=== PATIENT | male | born 1995 | race Caucasian/White ===

== ENCOUNTER 2017-09-30 11:28 | Emergency (ER) | payer SELFPAY ==
[~2017-09-30] VITALS: Ht 170.2 cm; Wt 74.8 kg
[2017-09-30] MEDS ORDERED: HALOPERIDOL LACTATE INJ 5 MG/ML VIAL ONE (11:39)
[2017-09-30] MEDS ORDERED: diphenhydrAMINE HCL 50 MG/ML VIAL ONE (11:39)
[2017-09-30] MEDS ORDERED: LORAZEPAM INJ 2 MG/ML VIAL ONE (11:40)
--- NOTE | 2017-09-30 11:40 | NUR ---
BBRA88/[employer]: PSYCHOTIC, DELUSIONAL S/P USING "BATH SALT", BBRA88/[employer]: PSYCHOTIC, DELUSIONAL S/P USING "BATH SALT", NAD NOTED, VSS, RESP EVEN AND UNLABORED, PT PUT ON MONITOR. AT .
[2017-09-30 11:48] LABS: BASOPHILS # (AUTO) 0.1 /CMM (0.0-0.2); BASOPHILS % (AUTO) 1.1 % (0.0-2.0); EOSINOPHILS % (AUTO) 0.2 % (0.0-6.0); HEMATOCRIT 42 % (39-51); HEMOGLOBIN 13.5 g/dL (13.5-17.5); LYMPHOCYTES # (AUTO) 1.2 /CMM (0.8-4.8); LYMPHOCYTES % (AUTO) 16.1 % (20.0-44.0); MEAN CORPUSCULAR HEMOGLOBIN 23 PG (26.0-33.0); MEAN CORPUSCULAR HGB CONC 32 g/dl (31.0-36.0); MEAN CORPUSCULAR VOLUME 69 fL (80-96); MONOCYTES # (AUTO) 0.5 /CMM (0.1-1.30); MONOCYTES % (AUTO) 6.9 % (2.0-12.0); NEUTROPHILS # (AUTO) 5.4 /CMM (1.8-8.9); NEUTROPHILS % (AUTO) 75.7 % (43.0-81.0); PLATELET COUNT (AUTO) 378 /CMM (150-450); RDW COEFFICIENT OF VARIATION 13.6 (11.5-15.0); WHITE BLOOD COUNT (AUTO) 7.2 K/uL (4.3-11.0)
--- NOTE | 2017-09-30 11:48 | NUR ---
Line started on L AC g 18, blood drawn from line and sent to lab
--- NOTE | 2017-09-30 11:49 | NUR ---
Medicated as ordered
--- NOTE | 2017-09-30 11:53 | NUR ---
Pt medicated as ordered per Dr. Gorman
[2017-09-30 11:54] LABS: CALCIUM, SERUM 9.8 mg/dL (8.5-10.1); CARBON DIOXIDE 26 mmol/L (21-32); CHLORIDE 100 mmol/L (98-107); CREATININE 1.1 mg/dL (0.6-1.3); GLUCOSE 160 mg/dL (74-106); POTASSIUM 3.4 mmol/L (3.5-5.1); SODIUM SERUM 138 mmol/L (136-145); UREA NITROGEN, BLOOD 7 mg/dL (7-18)
[2017-09-30 12:00] LABS: APPEARANCE,URINE Slightly Cloudy (CLEAR); BILIRUBIN,URINE SMALL (NEGATIVE); BLOOD, URINE Large Ery/uL (NEGATIVE); COLOR,URINE Yellow (YELLOW); KETONES,URINE Trace (NEGATIVE); LEUKOCYTE ESTERASE ,URINE Negative (NEGATIVE); NITRITE, URINE Negative (NEGATIVE); PROTEIN,URINE 100 mg/dl (NEGATIVE); UGLUCOSE Negative (NEGATIVE); UROBILINOGEN,URINE 0.2 EU/dL (0.2)
[2017-09-30 12:00] LABS: ACETAMINOPHEN < 2 ug/ml (10-30); ALANINE AMINOTRANSFERASE 15 U/L (12-78); ALBUMIN 4.6 g/dL (3.4-5.0); ALCOHOL, BLOOD < 3 mg/dL (0-0); ALKALINE PHOSPHATASE 74 U/L (46-116); ASPARTATE AMINOTRANSFERASE 16 U/L (15-37); BILIRUBIN,DIRECT 0.2 mg/dL (0.0-0.2); BILIRUBIN,TOTAL 0.5 mg/dL (0.2-1.0); TOTAL PROTEIN, SERUM 8.7 g/dL (6.4-8.2)
[2017-09-30] MEDS ORDERED: LORAZEPAM INJ 2 MG/ML VIAL IM ONE (12:00)
[2017-09-30] MEDS ORDERED: diphenhydrAMINE HCL 50 MG/ML VIAL IM ONE (12:00)
[2017-09-30] MEDS ORDERED: IV NS 0.9% 1,000 ML BAG IV ONE (12:00)
[2017-09-30] MEDS ORDERED: HALOPERIDOL LACTATE INJ 5 MG/ML VIAL IM ONE (12:00)
[2017-09-30 12:06] LABS: RBC,URINE 21-50 /HPF (0-2); WBC,URINE 0-3 /HPF (0-3)
[2017-09-30 12:07] LABS: BACTERIA,URINE None seen /HPF (None Seen); HYALINE CASTS, URINE Moderate /LPF (None Seen); SQUAMOUS EPITHELIAL CELL,UR Few /HPF (None Seen)
[2017-09-30 12:08] LABS: MUCUS,URINE Few /LPF (None Seen); URINE AMORPHOUS URATE Few /HPF (None Seen)
[2017-09-30 12:08] LABS: LYMPHOCYTES % (MANUAL) 18 % (16-48); MONOCYTES % (MANUAL) 4 % (0-11.0); NEUTROPHILS % (MANUAL) 78 (42-76)
--- NOTE | 2017-09-30 12:12 | NUR ---
PATIENTS FATHER CALLED
--- NOTE | 2017-09-30 14:22 | NUR ---
Dr. Gorman at bedside to reevaluate pt. Pt is A&Ox3, calm, and cooperative. Pt admits to using drugs (salvia) and denies suicidal or homicidal ideation.
--- NOTE | 2017-09-30 14:25 | NUR ---
IV removed. Catheter intact and site benign. Pressure and 4x4 applied to site. No bleeding noted.
[2017-09-30 16:04] VITALS: BP 127/74
--- NOTE | 2017-09-30 16:25 | NUR ---
NICKY received a call from ED LAZARA Comer requesting for SW to see the pt. who was discharged and is in the waiting area and to offer him drug rehab resources. SW met with pt. in the waiting area. Pt. is alert and oriented x 4. Pt. was cooperative and pleasant. Pt. states he resides with roommates at [id number] [place], [place] [id number] in [facility]. Pt. did not have his wallet or cellphone with him. Pt. admits to using edible marijuana and stopped using ten days ago. Pt. was given drug rehab resources. Pt. denied any suicidal and homicidal ideations or visual/auditory hallucinations at this time. NICKY spoke to pt's father via phone Dr. Blackwell in the presence of the pt. and LAZARA Comer. Pt's father continues to state that pt. is suicidal however, when pt. was asked again if he is suicidal, he denies being suicidal. Per pt's father, his roommate will be coming to flower buncher or picker the patient. NICKY gave pt. a pair of shoes and a sweatshirt. Pt. informed [facility] security that pt's roommate was coming to flower buncher or picker pt.and to inform pt. when his roommate is at the [facility] ED. LAZARA Comer was aware of pt's discharge plan and disposition.
== END 2017-09-30 16:04 | disposition home or self-care (01) ==
LOC: ER 11:30
DX: F22 Delusional disorders (principal); T50.905A Adverse effect of unspecified drugs, medicaments and biological substances, initial encounter; R45.1 Restlessness and agitation; Y92.89 Other specified places as the place of occurrence of the external cause
CPT/HCPCS: 36415; 80048; 80076; 80305; 80329; 81001; 85025; 96360; 96372 ×3; 99284; A4606; G0480 ×2; J1200; J1630; J2060; J7030; Z7610; 81000-TC